=== PATIENT | male | born 1985 | race Caucasian/White ===

== ENCOUNTER 2016-04-11 15:52 | Emergency (ER) | payer SELFPAY ==
[~2016-04-11] VITALS: Ht 190.5 cm; Wt 101.2 kg
[~2016-04-11 15:52] MED LIST: BACTRIM,SEPT1 TABLET PO; BACTROBAN CREAM15 GM TP; CLINDAMYCIN HC300 MG PO; CLOTRIMAZOLE15 GM TP
[2016-04-11] MEDS ORDERED: KEFLEX500 MG PO (19:15)
[2016-04-11] MEDS ORDERED: NAPROXEN500 MG PO (19:15)
[2016-04-11] MEDS ORDERED: BACTRIM,SEPT1 TABLET PO (19:15)
[2016-04-11 19:46] VITALS: BP 124/83
== END 2016-04-11 19:47 | disposition home or self-care (01) ==
LOC: EME 15:52
PROC: 0H9FXZZ Drainage of Right Hand Skin, External Approach (ICD-10-PCS; principal; 2016-04-11)
DX: L02.511 Cutaneous abscess of right hand (principal); L03.011 Cellulitis of right finger; Z86.14 Personal history of Methicillin resistant Staphylococcus aureus infection
CPT/HCPCS: 73130; 99281; 99284

== ENCOUNTER 2016-04-14 12:24 | Emergency (ER) | payer SELFPAY ==
[~2016-04-14] VITALS: Ht 190.5 cm; Wt 101.1 kg
[~2016-04-14 12:24] MED LIST changes: +KEFLEX500 MG PO; +NAPROXEN500 MG PO
[2016-04-14] MEDS ORDERED: NAPROXEN500 MG PO (16:14)
[2016-04-14 16:25] VITALS: BP 110/74
== END 2016-04-14 16:43 | disposition home or self-care (01) ==
LOC: EME 12:24
PROC: 0H9FXZZ Drainage of Right Hand Skin, External Approach (ICD-10-PCS; principal; 2016-04-14)
DX: L02.511 Cutaneous abscess of right hand (principal); F17.200 Nicotine dependence, unspecified, uncomplicated
CPT/HCPCS: 76882; 87070; 87075; 87077; 87147; 87186; 87205; 87254; 99281; 99284